=== PATIENT | female | born 1975 | race Caucasian/White ===

== ENCOUNTER → 2024-07-31 09:55 | Outpatient (REF) | payer BC, SELFPAY | LOC: HWRAD 09:55 | PROVIDERS: ATTENDING PHYSICIAN Obstetrics & Gynecology; FAMILY PHYSICIAN Physician Assistant Medical | DX: R10.31 Right lower quadrant pain (principal); Z12.31 Encounter for screening mammogram for malignant neoplasm of breast | CPT/HCPCS: 76830; 76856; 77063; 77067 ==

== ENCOUNTER → 2024-08-09 08:33 | Outpatient (REF) | payer BC, SELFPAY | LOC: WDC 08:33 | PROVIDERS: ATTENDING PHYSICIAN Obstetrics & Gynecology; FAMILY PHYSICIAN Physician Assistant Medical | DX: R92.8 Other abnormal and inconclusive findings on diagnostic imaging of breast (principal) | CPT/HCPCS: 76642 ==

== ENCOUNTER → 2025-02-05 13:38 | Outpatient (REF) | payer OTHER, SELFPAY | LOC: WDC 13:38 | PROVIDERS: ATTENDING PHYSICIAN Obstetrics & Gynecology; FAMILY PHYSICIAN Physician Assistant Medical | DX: R92.8 Other abnormal and inconclusive findings on diagnostic imaging of breast (principal) | CPT/HCPCS: 76642 ==

== ENCOUNTER → 2025-02-11 08:20 | Outpatient (REF) | payer OTHER, SELFPAY ==
--- NOTE | 2025-02-11 13:43 | OID.BR.INTR ---
[facility] Breast Navigator - Initial
- -
Date of Contact: 02/11/25
Met with patient. Patient given written information on navigator services available at [facility]. Will follow up as needed per protocol.
--- NOTE | 2025-02-13 10:43 | OID.BRR ---
Breast Navigator Note
- Patient Treatment
Type of Visit: Revisit
Treatment Site: [place]
- Biopsy #1
Biopsy Date: 02/08/25
Biopsy Result: Positive
- Notes
Diagnosis:
Treatment Site:
Medical Oncologist:
Radiation Oncologist:
Biopsy Date:
Biopsy Diagnosis:
Surgery Date:
Surgeon:
Date Comments
02/13/2025 Spoke with patient. Will arrange surgical appt. May consider second opinion. Dr. Natarajan's office made aware and will call to schedule patient.
== END ==
LOC: WDC 08:20
PROVIDERS: ATTENDING PHYSICIAN Obstetrics & Gynecology; FAMILY PHYSICIAN Physician Assistant Medical
DX: N63.11 Unspecified lump in the right breast, upper outer quadrant (principal)
CPT/HCPCS: 88305; 19083; 88341; 88342; 88360; A4648

== ENCOUNTER → 2025-02-19 19:22 | Outpatient (REF) | payer OTHER, SELFPAY | LOC: MRI 3T 19:22 | PROVIDERS: ATTENDING PHYSICIAN Surgery; FAMILY PHYSICIAN Nurse Practitioner Adult Health | DX: C50.411 Malignant neoplasm of upper-outer quadrant of right female breast (principal); Z17.0 Estrogen receptor positive status [ER+]; C50.919 Malignant neoplasm of unspecified site of unspecified female breast; Z17.31 Human epidermal growth factor receptor 2 positive status | CPT/HCPCS: 77049; A9585 ==

== ENCOUNTER → 2025-07-29 10:25 | Outpatient (REF) | payer OTHER, SELFPAY | LOC: RCS 10:25 | DX: Z91.89 Other specified personal risk factors, not elsewhere classified (principal) | CPT/HCPCS: 93306 ==

== ENCOUNTER 2025-09-25 06:34 | Day surgery (SDC) | payer OTHER, SELFPAY | END 2025-09-25 12:37 | disposition home or self-care (01) | LOC: GI 06:34 | PROVIDERS: ATTENDING PHYSICIAN Internal Medicine | DX: R12 Heartburn (principal); K44.9 Diaphragmatic hernia without obstruction or gangrene; K29.70 Gastritis, unspecified, without bleeding; K21.9 Gastro-esophageal reflux disease without esophagitis; K29.50 Unspecified chronic gastritis without bleeding; K22.9 Disease of esophagus, unspecified | CPT/HCPCS: 43239; 88305; 88341; 88342 ==